=== PATIENT | female | born 1950 | race Caucasian/White ===

== ENCOUNTER → 2017-12-22 | Outpatient (CLI) | payer OTHER ==
[~2017-12-22] MED LIST: ABILIFY10 MG PO; BENTYL10 MG PO; CLONAZEPAM1 MG PO; DEXILANT60 MG PO; FOSAMAX5 MG PO; METOPROLOL SUCC50 MG PO; NORCO 5/3251 TABLET PO; PERCOCET 5/31 TABLET PO; PRAVASTATIN SOD20 MG PO; VENLAFAXINE HCL75 MG PO; VITAMIN D5000 UNI1 PO; VITAMIN E400 UNIT PO
== END | disposition home or self-care (01) ==
LOC: CT 15:16
DX: N20.0 Calculus of kidney (principal); N32.89 Other specified disorders of bladder
CPT/HCPCS: 74176